=== PATIENT | female | born 1950 | race Caucasian/White ===

== ENCOUNTER 2016-08-25 04:55 | Emergency (ER) | payer MEDICARE ==
[~2016-08-25] VITALS: Ht 165.1 cm; Wt 77.3 kg
[2016-08-25 04:59] VITALS: BP 159/72; PULSE 75; RESP 16; TEMP 97.9; O2SAT 92
[2016-08-25] MEDS ORDERED: CYCL1TAB29 PO (05:12)
[2016-08-25] MEDS ORDERED: MOTR200T4 PO (05:12)
[2016-08-25] MEDS ORDERED: CYCLOBENZAPRINE HCL 10 MG TAB PO ONE (05:15)
[2016-08-25] MEDS ORDERED: KETOROLAC TROMETHAMINE 60 MG/2 ML (IM) VIAL IM ONE (05:15)
--- NOTE | 2016-08-25 05:15 | PD ---
HPI Chief Complaint: Back/ Neck Pain or Injury Time Seen by Provider: 05:07 Travel History International Travel<30 days: No Contact w/Intl Traveler<30days: No Traveled to known affect area: No History of Present Illness HPI 65-year-old female arrives with right parathoracic back pain. It has been present for a day or so. She has been lifting a wheelchair out of a car lately. She denies any specific injury or twisting-type maneuver mechanism for injury that she can recall. She reports a spasming like pain in the right parathoracic back which was confirmed by EMS. Tonight she became quite anxious when the pain was severe. Some diaphoresis occurred. EMS applied ice which helped minimally. In the ER she states that she was very anxious however feels much better. She has no saddle anesthesia. She's had no overflow urinary incontinence or changes in bowel habits. No fever. No lower extremity weakness. No upper extremity weakness. PFSH Past Medical History Medical History: Denies Significant Hx Menopausal: Yes Past Surgical History Surgical History: No Previous Surgery Section: Yes Social History Alcohol Use: No Tobacco Use: No Substance Use: No Allergies-Medications (Allergen,Severity, Reaction): Coded Allergies: Demerol (Verified Allergy, Severe, 08/25/16) Reported Meds & Prescriptions Reported Meds & Active Scripts Active No Active Prescriptions or Reported Medications Review of Systems Except as stated in HPI: all other systems reviewed are Neg Physical Exam Narrative GENERAL: 65 yo F, pleasant, in no acute distress SKIN: Focused skin assessment warm/dry. HEAD: Atraumatic. Normocephalic. EYES: Pupils equal and round. No scleral icterus. No injection or drainage. ENT: No nasal bleeding or discharge. Mucous membranes pink and moist. NECK: Trachea midline. No JVD. CARDIOVASCULAR: Regular rate and rhythm. No murmur appreciated. RESPIRATORY: No accessory muscle use. Clear to auscultation. Breath sounds equal bilaterally. GASTROINTESTINAL: Abdomen soft, non-tender, nondistended. Hepatic and splenic margins not palpable. MUSCULOSKELETAL: No obvious deformities. No clubbing. No cyanosis. No edema. Tenderness to palpation in the right parathoracic distribution of muscle spasming. NEUROLOGICAL: Awake and alert. No obvious cranial nerve deficits. Motor grossly within normal limits. Normal speech. PSYCHIATRIC: Appropriate mood and affect; insight and judgment normal. Data Data Last Documented VS Vital Signs Date Time Temp Pulse Resp B/P Pulse Ox O2 Delivery O2 Flow Rate FiO2 08/25/16 04:59 97.9 75 16 159/72 92 Vital signs reviewed MDM Medical Decision Making Medical Screen Exam Complete: Yes Emergency Medical Condition: Yes Differential Diagnosis Myofascial strain, epidural abscess, epidural hematoma, paraspinal hematoma, vertebral body injury Narrative Course Pt has muscle spasm in R parathoracic musculature. Flexeril and Motrin. Return precautions discussed. Diagnosis Primary Impression: Back pain Qualified Code: M54.6 - Acute left-sided thoracic back pain Referrals: Primary Care Physician 2 days Additional Instructions: You have a choice when it comes to health care, and we are glad that you chose [facility]. Hopefully, we have met your expectations on today's visit. You are welcome to return to [facility] at any time, as we are committed to meeting the health care needs of our community. Med/Other Pt SpecificInfo: Prescription(s) given Scripts Ibuprofen (Motrin Ib)200 Mg [id number] Mg PO Q6H PRN (PAIN SCALE 4 TO 10) 7 Days Ref 0 Prov:Gilson Talavera MD 08/25/16 Cyclobenzaprine (Flexeril)10 Mg Tab10 Mg PO TID #20 TAB Ref 0 Prov:Gilson Talavera MD 08/25/16 Disposition: 01 DISCHARGE HOME Condition: Stable Gilson Talavera MD August 25, 2016 05:15
== END 2016-08-25 06:11 | disposition home or self-care (01) ==
LOC: NEPE 04:55
DX: M54.6 Pain in thoracic spine (principal); R61 Generalized hyperhidrosis; X50.0XXA Overexertion from strenuous movement or load, initial encounter; Y93.F9 Activity, other caregiving; Y92.9 Unspecified place or not applicable; Y99.8 Other external cause status
CPT/HCPCS: 96372; 99283; J1885